=== PATIENT | male | born 2000 | race Caucasian/White ===

== ENCOUNTER 2019-09-02 15:50 | Emergency (ER) | payer MEDICAID ==
[~2019-09-02] VITALS: Ht 170.2 cm; Wt 131.5 kg
[2019-09-02 16:11] VITALS: Ht 170.2 cm; Wt 131.5 kg
[2019-09-02 16:32] LABS: BASOPHIL % 0.5 % (0-2); PLATELET COUNT 299 x10^3mcL (130-400); RED CELL DISTRIBUTION WIDTH 13.4 % (11.5-14.5)
[2019-09-02 16:45] LABS: CALCIUM 9.1 mg/dL (8.5-10.1); CHLORIDE SERUM 100 mmol/L (98-107); CREATININE SERUM 0.9 mg/dL (0.7-1.3); GFR1 > 60 mL/min; GLUCOSE SERUM 100 mg/dL (74-106); POTASSIUM SERUM 3.3 mmol/L (3.5-5.1); SODIUM SERUM 140 mmol/L (136-145)
[2019-09-02 16:49] LABS: ALBUMIN 4.1 g/dL (3.4-5.0); ALKALINE PHOSPHATASE 105 U/L (46-116); ALT/SGPT 36 U/L (16-63); AST/SGOT 22 U/L (15-37); BILIRUBIN TOTAL 0.4 mg/dL (0.20-1.00); CHOLESTEROL 181 mg/dL (<200); TOTAL PROTEIN, SERUM 7.8 g/dL (6.4-8.2)
[2019-09-02 18:12] LABS: AMPHETAMINE QUAL UR NONE DETECTED (See below)
[2019-09-02 18:30] VITALS: BP 144/95
== END 2019-09-02 18:30 | disposition home or self-care (01) ==
LOC: ED 15:50
PROVIDERS: Specialist
DX: R41.82 Altered mental status, unspecified (principal); E87.6 Hypokalemia
CPT/HCPCS: 36600; G0480; J7030; Q0092